=== PATIENT | male | born 1995 | race Caucasian/White ===

== ENCOUNTER 2016-07-26 22:06 | Emergency (ER) | payer OTHER ==
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
--- NOTE | 2016-07-26 23:07 | ED ORDER SUMMARY ---
..... Patient: JORGE STANLEY OrderSheet [facility] VisitID: [id number] [address] [place] [address] 21y, M Registration Date/Time: 07/26/2016 ORDER SHEET Weight: 147.4 kg (stated) Allergies: No Known Drug Allergy GENERAL ORDERS: MEDICATION ORDERS: Silvadene Cream Topical (Cream 1 %) 1 application (NOW) (23:04 07/26/2016 Jayne CASTILLO) (k 23:13 Kennedys R.N.) (23:27 Brielle R.N.) IV FLUIDS: ORDER SHEET NOTES: [Electronically signed by Danyelle Gilbert PA-C (23:32 07/26/2016)] [Electronically signed by Ame Robison R.N. (23:37 07/26/2016)] [Electronically locked/signed by Ame Robison R.N. (23:37 07/26/2016)]
--- NOTE | 2016-07-26 23:07 | ED ORDER SUMMARY ---
..... Patient: JORGE STANLEY OrderSheet [facility] VisitID: [id number] [address] [place] [address] 21y, M Registration Date/Time: 07/26/2016 ORDER SHEET Weight: 147.4 kg (stated) Allergies: No Known Drug Allergy GENERAL ORDERS: MEDICATION ORDERS: Silvadene Cream Topical (Cream 1 %) 1 application (NOW) (23:04 07/26/2016 Jayne CASTILLO) (k 23:13 Kennedys R.N.) (23:27 Brielle R.N.) IV FLUIDS: ORDER SHEET NOTES: [Electronically signed by Danyelle Gilbert PA-C (23:32 07/26/2016)] [Electronically signed by Ame Robison R.N. (23:37 07/26/2016)] [Electronically locked/signed by Ame Robison R.N. (23:37 07/26/2016)]
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
--- NOTE | 2016-07-26 23:37 | ED MED RECONCILIATION SUMMARY ---
Patient: JORGE STANLEY Medication Reconciliation Report [facility] VisitID: [id number] [address] [place] [address] 21y, M Registration Date/Time: 07/26/2016 Weight: 147.4 kg Height/Length: 76 in. BMI: 39.6 ALLERGIES: No Known Drug Allergy The patient's Home Medications are listed below: NONE. The source(s) of the original Home Medication information: Not obtained. The following Medications were given to the patient in the Emergency Department: SILVADENE CREAM [TOPICAL] Topical 1 application, administered: 07/26/2016 11:17:00 PM The following Medications were prescribed to the patient: Cephalexin 500 mg: take 1 capsule orally every 6 hours for 5 days. No refill. -- Danyelle Gilbert PA-C Silvadene cream 1% : apply to affected area twice daily for 1 week until better. Dispense eighty-five (85) grams. No refill. Substitution is permissible -- Danyelle Gilbert PA-C
--- NOTE | 2016-07-26 23:37 | ED DISCHARGE INSTRUCTIONS ---
Patient: JORGE STANLEY General Instructions [facility] VisitID: [id number] [place] [address] 21y, M Registration Date/Time: 07/26/2016 Multiple thermal loo to the right lower leg. BSA of 2nd degree burn = less than 10% (approximately). Infection present. Multiple second degree thermal loo to the right lower leg. BSA of 2nd degree burn = less than 10% (approximately). Delayed treatment. Infection present. INSTRUCTIONS Protect wound and keep wound area clean. You may wash wounds briefly, then dry. Apply bacitracin daily. Warnings: INFECTION: Watch for signs of infection (increasing heat and redness, pus-like drainage, swelling, or increased pain). Return or see your doctor if these signs occur. (mild). COMPLICATIONS: Complications from this condition are possible. Future problems may include infection, scarring and pain. GENERAL WARNINGS: Return or contact your physician immediately if your condition worsens or changes unexpectedly, if not improving as expected, or if other problems arise. Prescription Medications: Cephalexin 500 mg: take 1 capsule orally every 6 hours for 5 days. No refill. Silvadene cream 1% : apply to affected area twice daily for 1 week until better. Dispense eighty-five (85) grams. No refill. Substitution is permissible Follow-up: Follow up with your doctor Thursday if not better and for wound check. Understanding of the discharge instructions verbalized by patient. ADDITIONAL INFORMATION Loo [1', 2', 3'] A burn occurs when skin is exposed to excessive heat, sun, or harsh chemicals. A first degree burn causes redness only, like a sunburn, and heals in a few days. A second degree burn is deeper and causes a blister to form. This may take up to two weeks to heal. A third degree burn damages all layers of the skin and is very serious. It may take a month or more to heal. Home Care On the first day, you may apply a cool compress (small towel soaked in cool water) to relieve severe pain. If a bandage was applied, change it once a day, unless told otherwise. If the bandage sticks, soak it off under warm running water. Before changing a bandage, wash your hands. Then, wash the area with soap and water to remove any cream, ointment, ooze or scab. You may do this in a sink, under a tub faucet or in the shower. Rinse off the soap and pat dry with a clean towel. Look for signs of infection listed below. Reapply any prescribed cream/ointment to prevent infection and keep the bandage from sticking. Cover the burn with a non-stick gauze. Then wrap it with the bandage material. If the bandage becomes wet or soiled, change it as soon as possible. Use acetaminophen (Tylenol) or ibuprofen (Motrin, Advil) to control pain, unless another pain medicine was prescribed. [NOTE: If you have chronic liver or kidney disease or ever had a stomach ulcer or GI bleeding, talk with your doctor before using these medications.] Follow Up with your doctor or as advised by our staff. Most loo heal without infection. Occasionally, an infection may occur despite proper treatment. Therefore, check the burn daily for the signs of infection listed below. Get Prompt Medical Attention if any of the following signs of infection occur: Increasing pain in the wound Increasing redness, swelling or pus coming from the wound Red streaks in your skin coming from the burn Fever of 100.4 F (38 C) or higher, or as directed by your healthcare provider Burn, Infected [With Cream/Ointment & Dressing] Your burn has become infected. This is usually a result of skin germs (bacteria) getting into the burn area. Home Care: Loo Unless told otherwise, you should change your dressing once a day. If the bandage sticks, soak it off in warm water. A bandage left in place too long can worsen the infection. Wash the area with soap and water to remove all cream, ointment, ooze or scab. You may do this in a sink, under a tub faucet or in the shower. Rinse off the soap and pat dry with a clean towel. Look for signs of infection. Apply cream/ointment according to your doctor's instructions. This will prevent infection and keep the bandage from sticking. Cover the burn with a non-stick gauze. Then wrap it with the bandage material. If the bandage becomes wet or soiled, change it. You may use acetaminophen (Tylenol) or ibuprofen (Motrin, Advil) to control pain, unless another pain medicine was prescribed. [NOTE: If you have chronic liver or kidney disease or ever had a stomach ulcer or GI bleeding, talk with your doctor before using these medicines.] Do not use ibuprofen in children under six months of age. Follow Up: The infection should not worsen once treatment has begun. Check the burn in two days for the signs of worsening infection listed below. Get Prompt Medical Attention If Any Of The Following Occur: Increasing pain in the wound Increasing redness, swelling or pus coming from the wound Fever of 100.4 F (38.0C), or higher Loo [1', 2', 3'] A burn occurs when skin is exposed to excessive heat, sun, or harsh chemicals. A first degree burn causes redness only, like a sunburn, and heals in a few days. A second degree burn is deeper and causes a blister to form. This may take up to two weeks to heal. A third degree burn damages all layers of the skin and is very serious. It may take a month or more to heal. Home Care On the first day, you may apply a cool compress (small towel soaked in cool water) to relieve severe pain. If a bandage was applied, change it once a day, unless told otherwise. If the bandage sticks, soak it off under warm running water. Before changing a bandage, wash your hands. Then, wash the area with soap and water to remove any cream, ointment, ooze or scab. You may do this in a sink, under a tub faucet or in the shower. Rinse off the soap and pat dry with a clean towel. Look for signs of infection listed below. Reapply any prescribed cream/ointment to prevent infection and keep the bandage from sticking. Cover the burn with a non-stick gauze. Then wrap it with the bandage material. If the bandage becomes wet or soiled, change it as soon as possible. Use acetaminophen (Tylenol) or ibuprofen (Motrin, Advil) to control pain, unless another pain medicine was prescribed. [NOTE: If you have chronic liver or kidney disease or ever had a stomach ulcer or GI bleeding, talk with your doctor before using these medications.] Follow Up with your doctor or as advised by our staff. Most loo heal without infection. Occasionally, an infection may occur despite proper treatment. Therefore, check the burn daily for the signs of infection listed below. Get Prompt Medical Attention if any of the following signs of infection occur: Increasing pain in the wound Increasing redness, swelling or pus coming from the wound Red streaks in your skin coming from the burn Fever of 100.4 F (38 C) or higher, or as directed by your healthcare provider Cephalexin Monohydrate Oral tablet What is this medicine? CEPHALEXIN (sef a ALEKSEY in) is a cephalosporin antibiotic. It is used to treat certain kinds of bacterial infections It will not work for colds, flu, or other viral infections. How should I use this medicine? Take this medicine by mouth with a full glass of water. Follow the directions on the prescription label. This medicine can be taken with or without food. Take your medicine at regular intervals. Do not take your medicine more often than directed. Take all of your medicine as directed even if you think you are better. Do not skip doses or stop your medicine early. Talk to your preschool adviser regarding the use of this medicine in children. While this drug may be prescribed for selected conditions, precautions do apply. What side effects may I notice from receiving this medicine? Side effects that you should report to your doctor or health resident care coordinator as soon as possible: allergic reactions like skin rash, itching or hives, swelling of the face, lips, or tongue breathing problems pain or trouble passing urine redness, blistering, peeling or loosening of the skin, including inside the mouth severe or watery diarrhea unusually weak or tired yellowing of the eyes, skin Side effects that usually do not require medical attention (report to your doctor or health resident care coordinator if they continue or are bothersome): gas or heartburn genital or anal irritation headache joint or muscle pain nausea, vomiting What may interact with this medicine? probenecid some other antibiotics What if I miss a dose? If you miss a dose, take it as soon as you can. If it is almost time for your next dose, take only that dose. Do not take double or extra doses. There should be at least 4 to 6 hours between doses. Where should I keep my medicine? Keep out of the reach of children. Store at room temperature between 59 and 86 degrees F (15 and 30 degrees C). Throw away any unused medicine after the expiration date. What should I tell my health care provider before I take this medicine? They need to know if you have any of these conditions: kidney disease stomach or intestine problems, especially colitis an unusual or allergic reaction to cephalexin, other cephalosporins, penicillins, other antibiotics, medicines, foods, dyes or preservatives or trying to get breast-feeding What should I watch for while using this medicine? Tell your doctor or health resident care coordinator if your symptoms do not begin to improve in a few days. Do not treat diarrhea with over the counter products. Contact your doctor if you have diarrhea that lasts more than 2 days or if it is severe and watery. If you have diabetes, you may get a false-positive result for sugar in your urine. Check with your doctor or health resident care coordinator. You have been given the following additional information: Burn, Thermal, (1'2'3') W/ Dressing Burn, Infected Burn, Thermal, (1'2'3') W/ Dressing Cephalexin Monohydrate Oral tablet (Electronically signed by Danyelle Gilbert PA-C 07/26/2016 23:32)
--- NOTE | 2016-07-26 23:37 | ED MAR SUMMARY ---
..... Medication Administration Record [facility] [address] [place] [address] Patient: JORGE STANLEY Visit ID: [id number] 21y, M Weight: 147.4 kg Height/Length: 76 in BMI: 39.6 ALLERGIES: No Known Drug Allergy Given 23:17 07/26/2016 Ame Robison R.N. Medication Administered: SILVADENE CREAM [TOPICAL] (SILVER SULFADIAZINE), Dose: 1 application Cream Topical. Medication Ordered: Silvadene Cream Topical (Cream 1 %) 1 application (NOW).
--- NOTE | 2016-07-26 23:37 | ED MED RECONCILIATION SUMMARY ---
Patient: JORGE STANLEY Medication Reconciliation Report [facility] VisitID: [id number] [address] [place] [address] 21y, M Registration Date/Time: 07/26/2016 Weight: 147.4 kg Height/Length: 76 in. BMI: 39.6 ALLERGIES: No Known Drug Allergy The patient's Home Medications are listed below: NONE. The source(s) of the original Home Medication information: Not obtained. The following Medications were given to the patient in the Emergency Department: SILVADENE CREAM [TOPICAL] Topical 1 application, administered: 07/26/2016 11:17:00 PM The following Medications were prescribed to the patient: Cephalexin 500 mg: take 1 capsule orally every 6 hours for 5 days. No refill. -- Danyelle Gilbert PA-C Silvadene cream 1% : apply to affected area twice daily for 1 week until better. Dispense eighty-five (85) grams. No refill. Substitution is permissible -- Danyelle Gilbert PA-C
--- NOTE | 2016-07-26 23:37 | ED MAR SUMMARY ---
..... Medication Administration Record [facility] [address] [place] [address] Patient: JORGE STANLEY Visit ID: [id number] 21y, M Weight: 147.4 kg Height/Length: 76 in BMI: 39.6 ALLERGIES: No Known Drug Allergy Given 23:17 07/26/2016 Ame Robison R.N. Medication Administered: SILVADENE CREAM [TOPICAL] (SILVER SULFADIAZINE), Dose: 1 application Cream Topical. Medication Ordered: Silvadene Cream Topical (Cream 1 %) 1 application (NOW).
--- NOTE | 2016-07-26 23:37 | ED DISCHARGE INSTRUCTIONS ---
Patient: JORGE STANLEY General Instructions [facility] VisitID: [id number] [place] [address] 21y, M Registration Date/Time: 07/26/2016 Multiple thermal loo to the right lower leg. BSA of 2nd degree burn = less than 10% (approximately). Infection present. Multiple second degree thermal loo to the right lower leg. BSA of 2nd degree burn = less than 10% (approximately). Delayed treatment. Infection present. INSTRUCTIONS Protect wound and keep wound area clean. You may wash wounds briefly, then dry. Apply bacitracin daily. Warnings: INFECTION: Watch for signs of infection (increasing heat and redness, pus-like drainage, swelling, or increased pain). Return or see your doctor if these signs occur. (mild). COMPLICATIONS: Complications from this condition are possible. Future problems may include infection, scarring and pain. GENERAL WARNINGS: Return or contact your physician immediately if your condition worsens or changes unexpectedly, if not improving as expected, or if other problems arise. Prescription Medications: Cephalexin 500 mg: take 1 capsule orally every 6 hours for 5 days. No refill. Silvadene cream 1% : apply to affected area twice daily for 1 week until better. Dispense eighty-five (85) grams. No refill. Substitution is permissible Follow-up: Follow up with your doctor Thursday if not better and for wound check. Understanding of the discharge instructions verbalized by patient. ADDITIONAL INFORMATION Loo [1', 2', 3'] A burn occurs when skin is exposed to excessive heat, sun, or harsh chemicals. A first degree burn causes redness only, like a sunburn, and heals in a few days. A second degree burn is deeper and causes a blister to form. This may take up to two weeks to heal. A third degree burn damages all layers of the skin and is very serious. It may take a month or more to heal. Home Care On the first day, you may apply a cool compress (small towel soaked in cool water) to relieve severe pain. If a bandage was applied, change it once a day, unless told otherwise. If the bandage sticks, soak it off under warm running water. Before changing a bandage, wash your hands. Then, wash the area with soap and water to remove any cream, ointment, ooze or scab. You may do this in a sink, under a tub faucet or in the shower. Rinse off the soap and pat dry with a clean towel. Look for signs of infection listed below. Reapply any prescribed cream/ointment to prevent infection and keep the bandage from sticking. Cover the burn with a non-stick gauze. Then wrap it with the bandage material. If the bandage becomes wet or soiled, change it as soon as possible. Use acetaminophen (Tylenol) or ibuprofen (Motrin, Advil) to control pain, unless another pain medicine was prescribed. [NOTE: If you have chronic liver or kidney disease or ever had a stomach ulcer or GI bleeding, talk with your doctor before using these medications.] Follow Up with your doctor or as advised by our staff. Most loo heal without infection. Occasionally, an infection may occur despite proper treatment. Therefore, check the burn daily for the signs of infection listed below. Get Prompt Medical Attention if any of the following signs of infection occur: Increasing pain in the wound Increasing redness, swelling or pus coming from the wound Red streaks in your skin coming from the burn Fever of 100.4 F (38 C) or higher, or as directed by your healthcare provider Burn, Infected [With Cream/Ointment & Dressing] Your burn has become infected. This is usually a result of skin germs (bacteria) getting into the burn area. Home Care: Loo Unless told otherwise, you should change your dressing once a day. If the bandage sticks, soak it off in warm water. A bandage left in place too long can worsen the infection. Wash the area with soap and water to remove all cream, ointment, ooze or scab. You may do this in a sink, under a tub faucet or in the shower. Rinse off the soap and pat dry with a clean towel. Look for signs of infection. Apply cream/ointment according to your doctor's instructions. This will prevent infection and keep the bandage from sticking. Cover the burn with a non-stick gauze. Then wrap it with the bandage material. If the bandage becomes wet or soiled, change it. You may use acetaminophen (Tylenol) or ibuprofen (Motrin, Advil) to control pain, unless another pain medicine was prescribed. [NOTE: If you have chronic liver or kidney disease or ever had a stomach ulcer or GI bleeding, talk with your doctor before using these medicines.] Do not use ibuprofen in children under six months of age. Follow Up: The infection should not worsen once treatment has begun. Check the burn in two days for the signs of worsening infection listed below. Get Prompt Medical Attention If Any Of The Following Occur: Increasing pain in the wound Increasing redness, swelling or pus coming from the wound Fever of 100.4 F (38.0C), or higher Loo [1', 2', 3'] A burn occurs when skin is exposed to excessive heat, sun, or harsh chemicals. A first degree burn causes redness only, like a sunburn, and heals in a few days. A second degree burn is deeper and causes a blister to form. This may take up to two weeks to heal. A third degree burn damages all layers of the skin and is very serious. It may take a month or more to heal. Home Care On the first day, you may apply a cool compress (small towel soaked in cool water) to relieve severe pain. If a bandage was applied, change it once a day, unless told otherwise. If the bandage sticks, soak it off under warm running water. Before changing a bandage, wash your hands. Then, wash the area with soap and water to remove any cream, ointment, ooze or scab. You may do this in a sink, under a tub faucet or in the shower. Rinse off the soap and pat dry with a clean towel. Look for signs of infection listed below. Reapply any prescribed cream/ointment to prevent infection and keep the bandage from sticking. Cover the burn with a non-stick gauze. Then wrap it with the bandage material. If the bandage becomes wet or soiled, change it as soon as possible. Use acetaminophen (Tylenol) or ibuprofen (Motrin, Advil) to control pain, unless another pain medicine was prescribed. [NOTE: If you have chronic liver or kidney disease or ever had a stomach ulcer or GI bleeding, talk with your doctor before using these medications.] Follow Up with your doctor or as advised by our staff. Most loo heal without infection. Occasionally, an infection may occur despite proper treatment. Therefore, check the burn daily for the signs of infection listed below. Get Prompt Medical Attention if any of the following signs of infection occur: Increasing pain in the wound Increasing redness, swelling or pus coming from the wound Red streaks in your skin coming from the burn Fever of 100.4 F (38 C) or higher, or as directed by your healthcare provider Cephalexin Monohydrate Oral tablet What is this medicine? CEPHALEXIN (sef a ALEKSEY in) is a cephalosporin antibiotic. It is used to treat certain kinds of bacterial infections It will not work for colds, flu, or other viral infections. How should I use this medicine? Take this medicine by mouth with a full glass of water. Follow the directions on the prescription label. This medicine can be taken with or without food. Take your medicine at regular intervals. Do not take your medicine more often than directed. Take all of your medicine as directed even if you think you are better. Do not skip doses or stop your medicine early. Talk to your tail dogger regarding the use of this medicine in children. While this drug may be prescribed for selected conditions, precautions do apply. What side effects may I notice from receiving this medicine? Side effects that you should report to your doctor or health career technical education teacher as soon as possible: allergic reactions like skin rash, itching or hives, swelling of the face, lips, or tongue breathing problems pain or trouble passing urine redness, blistering, peeling or loosening of the skin, including inside the mouth severe or watery diarrhea unusually weak or tired yellowing of the eyes, skin Side effects that usually do not require medical attention (report to your doctor or health career technical education teacher if they continue or are bothersome): gas or heartburn genital or anal irritation headache joint or muscle pain nausea, vomiting What may interact with this medicine? probenecid some other antibiotics What if I miss a dose? If you miss a dose, take it as soon as you can. If it is almost time for your next dose, take only that dose. Do not take double or extra doses. There should be at least 4 to 6 hours between doses. Where should I keep my medicine? Keep out of the reach of children. Store at room temperature between 59 and 86 degrees F (15 and 30 degrees C). Throw away any unused medicine after the expiration date. What should I tell my health care provider before I take this medicine? They need to know if you have any of these conditions: kidney disease stomach or intestine problems, especially colitis an unusual or allergic reaction to cephalexin, other cephalosporins, penicillins, other antibiotics, medicines, foods, dyes or preservatives or trying to get breast-feeding What should I watch for while using this medicine? Tell your doctor or health career technical education teacher if your symptoms do not begin to improve in a few days. Do not treat diarrhea with over the counter products. Contact your doctor if you have diarrhea that lasts more than 2 days or if it is severe and watery. If you have diabetes, you may get a false-positive result for sugar in your urine. Check with your doctor or health career technical education teacher. You have been given the following additional information: Burn, Thermal, (1'2'3') W/ Dressing Burn, Infected Burn, Thermal, (1'2'3') W/ Dressing Cephalexin Monohydrate Oral tablet (Electronically signed by Danyelle Gilbert PA-C 07/26/2016 23:32)
== END 2016-07-26 23:30 | disposition home or self-care (01) ==
LOC: ED SRH 22:06
DX: T24.231A Burn of second degree of right lower leg, initial encounter (principal); T31.0 Burns involving less than 10% of body surface; B96.89 Other specified bacterial agents as the cause of diseases classified elsewhere; X19.XXXA Contact with other heat and hot substances, initial encounter; Y93.9 Activity, unspecified; Y99.9 Unspecified external cause status; Y92.009 Unspecified place in unspecified non-institutional (private) residence as the place of occurrence of the external cause